=== PATIENT | male | born 1970 | race Caucasian/White ===

== ENCOUNTER → 2018-09-29 | Outpatient (CLI) | payer BC ==
--- NOTE | 2018-09-30 00:39 | ECGEPIP ---
Stationary ECG Study [facility] Test Date: 2018-09-29 Pat Name: DARCIE VÁZQUEZ Department: Room: - Gender: M Software Developer Consultant: : [id number] Requested By: Gume Cunningham Order Number: [id number] Reading MD: Kvng Fernandez Measurements Intervals [place] Rate: 64 P: 34 DC: 190 QRS: 38 QRSD: 93 T: 42 QT: 393 QTc: 407 Interpretive Statements SINUS RHYTHM EARLY REPOLARIZATION NO PRIOR TRACING Electronically Signed On 09-30-2018 0:39:40 EST by Kvng Fernandez
== END ==
LOC: M EKG 07:30
PROVIDERS: ATTEND Surgery
DX: Z01.818 Encounter for other preprocedural examination (principal); Z98.890 Other specified postprocedural states; Z87.19 Personal history of other diseases of the digestive system

== ENCOUNTER → 2023-09-08 | Outpatient (CLI) | payer OTHER | LOC: M OUTALCOH 08:10 | PROVIDERS: ATTEND Psychiatry & Neurology Psychiatry | DX: Z03.89 Encounter for observation for other suspected diseases and conditions ruled out (principal) ==

== ENCOUNTER 2023-09-22 15:55 | Outpatient (RCR) | payer OTHER | END 2023-10-01 | LOC: M OUTALCOH 15:55 | PROVIDERS: ATTEND Psychiatry & Neurology Psychiatry | DX: F10.10 Alcohol abuse, uncomplicated (principal) ==

== ENCOUNTER → 2023-10-30 | Outpatient (RCR) | payer OTHER | LOC: M OUTALCOH 10-27 11:00 | PROVIDERS: ATTEND Psychiatry & Neurology Psychiatry | DX: F10.10 Alcohol abuse, uncomplicated (principal) ==

== ENCOUNTER 2023-11-27 16:00 | Outpatient (RCR) | payer OTHER | END 2023-11-30 | LOC: M OUTALCOH 16:00 | PROVIDERS: ATTEND Psychiatry & Neurology Psychiatry | DX: F10.10 Alcohol abuse, uncomplicated (principal) ==

== ENCOUNTER 2023-12-23 07:59 | Outpatient (RCR) | payer OTHER | END 2023-12-30 | LOC: M OUTALCOH 07:59 | PROVIDERS: ATTEND Psychiatry & Neurology Psychiatry | DX: F10.10 Alcohol abuse, uncomplicated (principal) ==